=== PATIENT | male | born 2000 | race Hispanic/Latino ===

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

== ENCOUNTER 2020-05-10 11:55 | Emergency (ER) | payer SELFPAY ==
[~2020-05-10] VITALS: Ht 167.6 cm; Wt 113.0 kg
[2020-05-10] MEDS ORDERED: TESSALON PERLE100 MG PO (12:40)
[2020-05-10 12:45] VITALS: BP 153/88
[2020-05-10] MEDS ORDERED: MEDDOSEPAK PO (13:55)
== END 2020-05-10 12:46 | disposition home or self-care (01) | DRG 204 ==
LOC: ED 11:55
DX: R05 Cough (principal); F17.210 Nicotine dependence, cigarettes, uncomplicated; Z20.822 Contact with and (suspected) exposure to COVID-19

== ENCOUNTER 2020-07-08 16:32 | Emergency (ER) | payer SELFPAY ==
[~2020-07-08] VITALS: Ht 167.6 cm; Wt 118.0 kg
[~2020-07-08 16:32] MED LIST changes: +MEDDOSEPAK PO; +TESSALON PERLE100 MG PO
[2020-07-08 17:50] VITALS: BP 137/84
== END 2020-07-08 17:50 | disposition home or self-care (01) | DRG 556 ==
LOC: ED 16:32
DX: M25.561 Pain in right knee (principal); F17.200 Nicotine dependence, unspecified, uncomplicated; X50.0XXA Overexertion from strenuous movement or load, initial encounter; Y93.89 Activity, other specified; Y92.009 Unspecified place in unspecified non-institutional (private) residence as the place of occurrence of the external cause
CPT/HCPCS: L1830

== ENCOUNTER 2021-10-07 10:33 | Emergency (ER) | payer SELFPAY ==
[~2021-10-07] VITALS: Ht 167.6 cm; Wt 111.0 kg
[2021-10-07 10:41] VITALS: BP 142/76
[2021-10-07 10:47] VITALS: BP 122/69
[2021-10-07] MEDS ORDERED: AMOXICILLIN500 MG PO (11:51)
[2021-10-07 12:03] VITALS: BP 122/69
== END 2021-10-07 12:03 | disposition home or self-care (01) | DRG 153 ==
LOC: ED 10:33
DX: J02.9 Acute pharyngitis, unspecified (principal); R05.9 Cough, unspecified; J34.89 Other specified disorders of nose and nasal sinuses; R09.81 Nasal congestion; F17.200 Nicotine dependence, unspecified, uncomplicated; Z20.822 Contact with and (suspected) exposure to COVID-19

== ENCOUNTER 2023-02-23 08:14 | Emergency (ER) | payer SELFPAY ==
[~2023-02-23] VITALS: Ht 167.6 cm; Wt 118.0 kg
[~2023-02-23 08:14] MED LIST changes: +AMOXICILLIN500 MG PO
[2023-02-23 08:20] VITALS: BP 97/66
[2023-02-23] MEDS ORDERED: CYCLOBENZAPRINE10 MG PO (10:11)
[2023-02-23] MEDS ORDERED: NAPROXEN500 MG PO (10:11)
[2023-02-23 10:21] VITALS: BP 104/55
[2023-02-23 10:23] VITALS: BP 104/55
== END 2023-02-23 10:28 | disposition home or self-care (01) | DRG 552 ==
LOC: ED 08:14
DX: M54.6 Pain in thoracic spine (principal); Z72.0 Tobacco use

== ENCOUNTER 2024-05-17 14:54 | Emergency (ER) | payer SELFPAY ==
[~2024-05-17 14:54] MED LIST changes: +CYCLOBENZAPRINE10 MG PO; +NAPROXEN500 MG PO
== END 2024-05-17 15:38 | disposition home or self-care (01) | DRG 951 ==
LOC: ED 14:54 → LWOBS 15:38 → ED 15:38
DX: Z53.21 Procedure and treatment not carried out due to patient leaving prior to being seen by health care provider (principal)